=== PATIENT | male | born 1980 | race Caucasian/White ===

== ENCOUNTER 2021-06-19 13:02 | Emergency (ER) | payer OTHER, BC ==
[~2021-06-19] VITALS: Ht 175.3 cm; Wt 63.5 kg
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
[2021-06-19 14:01] VITALS: BP 111/78
[2021-06-19 14:09] VITALS: BP 111/78
--- NOTE | 2021-06-19 15:01 | DIREP ---
PROCEDURE:XRAY FOOT MIN 3 VWS-LT COMPARISON:None. INDICATIONS:foot injury FINDINGS: BONES:No fracture. Small posterior calcaneal spur. JOINTS:No dislocation. LisFranc alignment is normal. SOFT TISSUES:No localized soft tissue swelling. OTHER:No additional findings. CONCLUSION: 1. No acute abnormality involving the left foot. 2. Small posterior calcaneal spur. Dictated by: Harshil Leonardo MD on 06/19/2021 at 02:59 PM
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
== END 2021-06-19 16:21 | disposition home or self-care (01) ==
LOC: ER 13:02
DX: S90.32XA Contusion of left foot, initial encounter (principal); Z88.6 Allergy status to analgesic agent; Z88.8 Allergy status to other drugs, medicaments and biological substances; V49.9XXA Car occupant (driver) (passenger) injured in unspecified traffic accident, initial encounter; Y93.89 Activity, other specified; Y92.89 Other specified places as the place of occurrence of the external cause; Y99.8 Other external cause status
CPT/HCPCS: 99283; 73630-LT